=== PATIENT | female | born 1990 ===

== ENCOUNTER 2021-06-21 09:45 | Outpatient (CLI) | payer OTHER | END 2021-06-21 10:32 | disposition home or self-care (01) | LOC: NST 09:45 | PROVIDERS: ATTEND Obstetrics & Gynecology | DX: Z34.83 Encounter for supervision of other normal pregnancy, third trimester (principal) ==

== ENCOUNTER 2021-06-21 13:30 | Inpatient (IN) | payer OTHER ==
[~2021-06-21] VITALS: Ht 157.5 cm; Wt 76.2 kg
[2021-07-04] MEDS ORDERED: PRENATAL CAPLE1 EAC1 PO (06:09)
[2021-07-04] MEDS ORDERED: LEXAPRO5 MG (06:11)
== END 2021-07-06 14:43 | disposition home or self-care (01) | DRG 788 ==
LOC: EDUNIT# 13:30 → SURH 06-25 13:30 → LDR 07-04 05:14 → OB/GYN 07-04 16:57
PROVIDERS: ADMIT Obstetrics & Gynecology Maternal & Fetal Medicine; ATTEND Obstetrics & Gynecology Maternal & Fetal Medicine
PROC: 3E033VJ Introduction of Other Hormone into Peripheral Vein, Percutaneous Approach (ICD-10-PCS; 2021-07-04)
PROC: 4A1HXFZ Monitoring of Products of Conception, Cardiac Rhythm, External Approach (ICD-10-PCS; 2021-07-04)
PROC: 10D00Z1 Extraction of Products of Conception, Low, Open Approach (ICD-10-PCS; principal; 2021-07-04 16:00)
DX: O61.0 Failed medical induction of labor (principal); O76 Abnormality in fetal heart rate and rhythm complicating labor and delivery; O48.0 Post-term pregnancy; Z3A.41 41 weeks gestation of pregnancy; Z37.0 Single live birth

== ENCOUNTER 2021-06-29 08:57 | Outpatient (CLI) | payer OTHER | END 2021-06-29 10:03 | disposition home or self-care (01) | LOC: NST 08:57 | PROVIDERS: ATTEND Obstetrics & Gynecology | DX: Z34.83 Encounter for supervision of other normal pregnancy, third trimester (principal) ==

== ENCOUNTER → 2021-07-01 | Outpatient (CLI) | payer OTHER ==
[~2021-07-01] MED LIST: LEXAPRO5 MG; PRENATAL CAPLE1 EAC1 PO
== END | disposition home or self-care (01) ==
LOC: NST 09:52
PROVIDERS: ATTEND Obstetrics & Gynecology Maternal & Fetal Medicine
DX: Z34.83 Encounter for supervision of other normal pregnancy, third trimester (principal)